=== PATIENT | female | born 1940 ===

== ENCOUNTER 2017-07-24 12:39 | Observation (INO) | payer MEDICARE ==
[2017-07-24] MEDS ORDERED: Sodium Chloride 0.9% 1,000 ML IV SCH (12:45)
[2017-07-24 13:06] LABS: BASO % 0.6 % (0.0-2.0); EOS # 0.2 K/uL (0.0-0.7); EOS % 3.2 % (0.0-4.0); HEMOGLOBIN 14.8 g/dL (12.0-16.0); LYMPH # 1.9 K/uL (1.0-4.3); LYMPH % 25.2 % (20.0-40.0); MEAN CELL VOLUME 89.4 fl (81.0-99.0); MEAN CORPUSCULAR HGB CONC 33.5 g/dL (33.0-37.0); MEAN PLATELET VOLUME 8.6 fl (7.2-11.7); MONO # 0.6 K/uL (0.0-0.8); MONO % 7.6 % (0.0-10.0); NEUT # 4.8 K/uL (1.8-7.0); NEUT % 63.4 % (50.0-75.0); RBC 4.92 Mil/uL (3.80-5.20); RED CELL DISTRIBUTION WIDTH 13.4 % (11.5-14.5); WHITE BLOOD COUNT 7.5 K/uL (4.8-10.8)
[2017-07-24 13:10] LABS: INR 1.1 (0.9-1.2); PARTIAL THROMBOPLASTIN TIME 31.7 Seconds (25.6-37.1); PROTHROMBIN TIME 11.7 Seconds (9.8-13.1)
[2017-07-24 13:12] LABS: ALB/GLOB RATIO 1.3 (1.0-2.1); ALBUMIN 4.5 g/dL (3.5-5.0); ALT/SGPT 32 U/L (9-52); AST/SGOT 28 U/L (14-36); BLOOD UREA NITROGEN 19 mg/dl (7-17); CALCIUM 9.5 mg/dL (8.4-10.2); GFR AFRICAN-AMERICAN > 60; GFR NON-AFRICAN AMERICAN > 60; HDL CHOLESTEROL 35 MG/DL (30-70)
--- NOTE | 2017-07-24 13:21 | CT ---
PROCEDURE: CT HEAD WITHOUT CONTRAST. HISTORY: code stroke COMPARISON: None available. TECHNIQUE: Axial computed tomography images were obtained through the head/brain without intravenous contrast. Radiation dose: Total exam DLP = 697.16 mGy-cm. This CT exam was performed using one or more of the following dose reduction techniques: Automated exposure control, adjustment of the mA and/or kV according to patient size, and/or use of iterative reconstruction technique. FINDINGS: HEMORRHAGE: No intracranial hemorrhage. BRAIN: Normal post-white matter differentiation and density are appreciated throughout the cerebrum and cerebellum with the brainstem appearing unremarkable as well. There is no mass effect. There is no suspicious extra-axial fluid collection and the midline brain anatomy appears diffusely unremarkable. VENTRICLES: Unremarkable. No hydrocephalus. CALVARIUM: Unremarkable. PARANASAL SINUSES: Unremarkable as visualized. No significant inflammatory changes. MASTOID AIR CELLS: Unremarkable as visualized. No inflammatory changes. OTHER FINDINGS: None. IMPRESSION: Unremarkable noncontrast Head CT. Follow-up CT or MRI are available if indicated. Discussed with Dr. Jackman with written entering via verification 07/24/2017 1:16 p.m..
[2017-07-24 13:22] LABS: LDL CHOLESTEROL 81 mg/dL (0-129)
[2017-07-24] MEDS ORDERED: Labetalol 5 mg/ml Inj 20ML IVP STA ×2 (13:27→14:13)
--- NOTE | 2017-07-24 14:13 | ED PDOC ---
NIHSS Stroke Scale - Date/Time Evaluation Performed When Was NIHSS Performed: Baseline - How Severe is the Stroke Level of Consciousness: 0=Alert LOC to Questions: 1=One correct LOC to commands: 0=Obeys both correctly Best Gaze: 0=Normal Visual: 0=No visual loss Facial: 0=Normal Motor Arm - Left: 0=No drift Motor Arm - Right: 0=No drift Motor Leg - Left: 0=No drift Motor Leg - Right: 0=No drift Limb Ataxia: 0=Absent Sensory: 0=Normal Best Language: 1=Mild to moderate aphasia Dysarthia: 0=Normal articulation Extinction & Inattention (Neglect): 0=Normal, no object Score: 2 Past Medical History Vital Signs: Last Vital Signs Temp 97 F L 07/24/17 13:03 Pulse 69 07/24/17 14:08 Resp 19 07/24/17 14:08 BP 153/73 H 07/24/17 14:08 Pulse Ox 98 07/24/17 14:08 - Home Medications Home Medications: Ambulatory Orders Medication Instructions Recorded Atorvastatin [Lipitor] 10 mg PO HS 07/24/17 Levothyroxine [Synthroid] 75 mcg PO DAILY 07/24/17 Lisinopril [Zestril] 5 mg PO DAILY 07/24/17 amLODIPine [Norvasc] 2.5 mg PO DAILY 07/24/17 - Allergies Allergies/Adverse Reactions: Allergies Allergy/AdvReac Type Severity Reaction Status Date / Time No Known Allergies Allergy Verified 07/24/17 12:43 - Laboratory Results Result Diagrams: 07/24/17 12:55 07/24/17 12:55 - ECG O2 Sat by Pulse Oximetry: 98 Disposition - Disposition
--- NOTE | 2017-07-24 15:12 | RAD ---
HISTORY: Code Stroke COMPARISON: No prior. FINDINGS: LUNGS: No active pulmonary disease. PLEURA: No significant pleural effusion identified, no pneumothorax apparent. CARDIOVASCULAR: Normal. OSSEOUS STRUCTURES: No significant abnormalities. VISUALIZED UPPER ABDOMEN: Normal. OTHER FINDINGS: None. IMPRESSION: No acute cardiopulmonary disease appreciated.
--- NOTE | 2017-07-24 15:46 | MRI ---
PROCEDURE: MRI BRAIN WITHOUT CONTRAST HISTORY: acute confusion COMPARISON: Noncontrast head CT 07/24/2017. TECHNIQUE: Multiplanar, multisequence MR images of the brain were obtained without intravenous contrast enhancement. FINDINGS: HEMORRHAGE: None DWI: No evidence of an acute or early subacute infarction. BRAIN PARENCHYMA: Trace periventricular chronic microangiopathy white-matter changes are identified and there is limited diffuse cerebral atrophy. No cortical edema is appreciated. There is no mass effect. There is no suspicious extra-axial fluid collection appreciated there is a near empty sella. Midline brain anatomy is otherwise unremarkable. Posterior fossa contents are unremarkable. Two tiny nearly punctate cystic areas at the upper left ramakrishna approaching the left cerebral peduncle appear to represent dilated perivascular spaces rather than chronic lacunes. VENTRICLES: Unremarkable. No hydrocephalus. CRANIUM: Unremarkable. ORBITS: Grossly unremarkable. PARANASAL SINUSES/MASTOIDS: Clear VASCULAR SYSTEM: Skull base flow voids intact. OTHER FINDINGS: None. IMPRESSION: Stable nonacute brain MRI with no significant interval change as compared prior head CT also performed 07/24/2017 earlier in the day. Limited age-related neuro degenerative changes are encountered.
--- NOTE | 2017-07-24 15:48 | MRI ---
PROCEDURE: Magnetic Resonance Angiography Brain HISTORY: acute onset confusion COMPARISON: None available. TECHNIQUE: 3D time of flight MR angiography of the intracranial arteries was performed. Rotating maximum intensity projection images were generated. FINDINGS: INTERNAL CAROTID ARTERIES: Unremarkable. The skull base, petrous, cavernous and supraclinoid segments are bilaterally widely patient. ANTERIOR CEREBRAL ARTERIES: Unremarkable. A1 and A2 segments are widely patent. Smaller distal branches unremarkable, as visualized. MIDDLE CEREBRAL ARTERIES: Unremarkable. M1 and M2 segments are widely patent. Perisylvian branches grossly symmetric. POSTERIOR CIRCULATION: Basilar Artery: Unremarkable. Distal Vertebral Arteries: Unremarkable. Posterior Cerebral Arteries: Unremarkable. Posterior Inferior Cerebellar Arteries: Unremarkable. ANEURYSM/ VASCULAR MALFORMATIONS: None. OTHER FINDINGS: None. IMPRESSION: Unremarkable MR angiography of the brain.
--- NOTE | 2017-07-24 17:56 | US ---
PROCEDURE: Duplex ultrasound of the carotid and vertebral arteries. HISTORY: stroke COMPARISON: None available. TECHNIQUE: Grayscale and duplex Doppler evaluation of the cervical carotid and vertebral arteries were performed. The common carotid, carotid bifurcations and cervical ICA and proximal ECA were evaluated. The vertebral arteries were evaluated for gross patency and direction. FINDINGS: RIGHT CAROTID ARTERIES: Common Carotid Artery: Normal. Maximal flow velocity of 73.5 cm/s. Carotid Bifurcation: Trace plaque identified at the carotid bulb. Internal Carotid Artery:Normal. Maximal flow velocity of 54.1 cm/s. External Carotid Artery (proximal branches): Widely patent Maximal flow velocity of 59.3 cm/s. ICA/CCA Ratio: 0.7 LEFT CAROTID ARTERIES: Common Carotid Artery: Normal. Maximal flow velocity of 53.4 cm/s. Carotid Bifurcation: Normal. Internal Carotid Artery:Normal. Maximal flow velocity of 55.6 cm/s. External Carotid Artery (proximal branches): Normal. Maximal flow velocity of 51.2 cm/s. ICA/CCA Ratio: 1.0 VERTEBRAL ARTERIES: Right Vertebral Artery: Patent. Antegrade flow. Left Vertebral Artery: Patent. Antegrade flow. OTHER FINDINGS: None. IMPRESSION: Trace plaque right carotid bulb with none identified at the left. No significant stenosis bilateral common or internal carotid arteries based on morphology and spectral analysis.
--- NOTE | 2017-07-24 23:24 | CP.PCM.HP ---
History of Present Illness - History of Present Illness History of Present Illness: This is a 77 y/o female admitted for Past Patient History - Past Medical History & Family History Past Medical History?: Yes - Past Social History Smoking Status: Former Smoker - CARDIAC Hx Cardiac Disorders: Yes Hx Hypercholesterolemia: Yes Hx Hypertension: Yes - PULMONARY Hx Respiratory Disorders: No - NEUROLOGICAL Hx Neurological Disorder: No - HEENT Hx HEENT Problems: Yes Hx Glaucoma: Yes - RENAL Hx Chronic Kidney Disease: No - ENDOCRINE/METABOLIC Hx Endocrine Disorders: Yes Hx Hypothyroidism: Yes - HEMATOLOGICAL/ONCOLOGICAL Hx Blood Disorders: No Hx AIDS: No Hx Human Immunodeficiency Virus (HIV): No - INTEGUMENTARY Hx Dermatological Problems: No - MUSCULOSKELETAL/RHEUMATOLOGICAL Hx Musculoskeletal Disorders: No Hx Falls: No - GASTROINTESTINAL Hx Gastrointestinal Disorders: No - GENITOURINARY/GYNECOLOGICAL Hx Genitourinary Disorders: No - PSYCHIATRIC Hx Psychophysiologic Disorder: No Hx Substance Use: No - SURGICAL HISTORY Hx Surgeries: Yes Hx Appendectomy: Yes Hx Section: Yes Hx Tonsillectomy: Yes - ANESTHESIA Hx Anesthesia: Yes Hx Anesthesia Reactions: No Hx Malignant Hyperthermia: No Has any member of the family had a problem w/ anesthesia?: No Meds Allergies/Adverse Reactions: Allergies Allergy/AdvReac Type Severity Reaction Status Date / Time No Known Allergies Allergy Verified 07/24/17 12:43 Results - Vital Signs Recent Vital Signs: Last Vital Signs Temp 98.1 F 07/24/17 20:01 Pulse 66 07/24/17 20:01 Resp 17 07/24/17 20:01 BP 142/75 07/24/17 20:01 Pulse Ox 97 07/24/17 20:01 - Labs Result Diagrams: 07/24/17 12:55 07/24/17 12:55 Labs: Laboratory Results - last 24 hr 07/24/17 07/24/17 07/24/17 12:45 12:55 12:55 WBC 7.5 RBC 4.92 Hgb 14.8 Hct 44.0 MCV 89.4 MCH 30.0 MCHC 33.5 RDW 13.4 Plt Count 216 MPV 8.6 Neut % (Auto) 63.4 Lymph % (Auto) 25.2 [place] % (Auto) 7.6 Eos % (Auto) 3.2 Baso % (Auto) 0.6 Neut # (Auto) 4.8 Lymph # (Auto) 1.9 [place] # (Auto) 0.6 Eos # (Auto) 0.2 Baso # (Auto) 0.0 PT INR APTT Sodium 138 Potassium 4.1 Chloride 102 Carbon Dioxide 23 Anion Gap 17 BUN 19 H Creatinine 0.6 L Est GFR ( Amer) > 60 Est GFR (Non-Af Amer) > 60 POC Glucose (mg/dL) 91 Random Glucose 106 H Hemoglobin A1c Calcium 9.5 Total Bilirubin 0.7 AST 28 ALT 32 Alkaline Phosphatase 109 Troponin I < 0.0120 Total Protein 8.0 Albumin 4.5 Globulin 3.5 Albumin/Globulin Ratio 1.3 Triglycerides 185 H Cholesterol 152 LDL Cholesterol Direct 81 HDL Cholesterol 35 07/24/17 07/24/17 12:55 12:55 WBC RBC Hgb Hct MCV MCH MCHC RDW Plt Count MPV Neut % (Auto) Lymph % (Auto) [place] % (Auto) Eos % (Auto) Baso % (Auto) Neut # (Auto) Lymph # (Auto) [place] # (Auto) Eos # (Auto) Baso # (Auto) PT 11.7 INR 1.1 APTT 31.7 Sodium Potassium Chloride Carbon Dioxide Anion Gap BUN Creatinine Est GFR ( Amer) Est GFR (Non-Af Amer) POC Glucose (mg/dL) Random Glucose Hemoglobin A1c 5.7 Calcium Total Bilirubin AST ALT Alkaline Phosphatase Troponin I Total Protein Albumin Globulin Albumin/Globulin Ratio Triglycerides Cholesterol LDL Cholesterol Direct HDL Cholesterol
[2017-07-25] MEDS: Levothyroxine 75 MCG TAB PO SCH (08:27)
--- NOTE | 2017-07-25 10:19 | CP.PCM.CON ---
History of Present Illness - History of Present Illness History of Present Illness: 77 yr old woman from [facility], who is here for confusion and a feeling of depersonalization that she normally feels when her blood pressure rises. In the er, her blood pressure was 200 systolic and she was given more labetalol in the er. she was not a tpa candidate as her symptoms resolved and i felt that she was having hypertensive urgency. today, she participates in the physical exam and is normal neurologically. She says that the last time she had a tia she had similar feelings of confusion and it passed when she took her bp meds. roS: as above . no weakness, no aphasia. pMH/PSH: Hypertension, hypothyroidism, glaucoma FH/SH: Has one son, no tobacco, no etoh. . All: nkda. on exam: normal neurological examination. no nystagmus, no dysmetria. no ataxia. Past Patient History - Past Medical History & Family History Past Medical History?: Yes - Past Social History Smoking Status: Former Smoker - CARDIAC Hx Cardiac Disorders: Yes Hx Hypercholesterolemia: Yes Hx Hypertension: Yes - PULMONARY Hx Respiratory Disorders: No - NEUROLOGICAL Hx Neurological Disorder: No - HEENT Hx HEENT Problems: Yes Hx Glaucoma: Yes - RENAL Hx Chronic Kidney Disease: No - ENDOCRINE/METABOLIC Hx Endocrine Disorders: Yes Hx Hypothyroidism: Yes - HEMATOLOGICAL/ONCOLOGICAL Hx Blood Disorders: No Hx AIDS: No Hx Human Immunodeficiency Virus (HIV): No - INTEGUMENTARY Hx Dermatological Problems: No - MUSCULOSKELETAL/RHEUMATOLOGICAL Hx Musculoskeletal Disorders: No Hx Falls: No - GASTROINTESTINAL Hx Gastrointestinal Disorders: No - GENITOURINARY/GYNECOLOGICAL Hx Genitourinary Disorders: No - PSYCHIATRIC Hx Psychophysiologic Disorder: No Hx Substance Use: No - SURGICAL HISTORY Hx Surgeries: Yes Hx Appendectomy: Yes Hx Section: Yes Hx Tonsillectomy: Yes - ANESTHESIA Hx Anesthesia: Yes Hx Anesthesia Reactions: No Hx Malignant Hyperthermia: No Has any member of the family had a problem w/ anesthesia?: No Meds Allergies/Adverse Reactions: Allergies Allergy/AdvReac Type Severity Reaction Status Date / Time No Known Allergies Allergy Verified 07/24/17 12:43 - Medications Medications: Current Medications Amlodipine Besylate (Norvasc) 5 mg PO DAILY [facility] Last Admin: 07/25/17 08:30 Dose: 5 mg Aspirin (Aspirin) 325 mg PO DAILY [facility] Last Admin: 07/25/17 08:26 Dose: 325 mg Atorvastatin Calcium (Lipitor) 10 mg PO HS [facility] Last Admin: 07/24/17 21:49 Dose: 10 mg Levothyroxine Sodium (Synthroid) 75 mcg PO DAILY [facility] Last Admin: 07/25/17 08:27 Dose: 75 mcg Lisinopril (Zestril) 5 mg PO DAILY [facility] Last Admin: 07/25/17 09:54 Dose: 5 mg Results - Vital Signs Recent Vital Signs: Last Vital Signs Temp 97.7 F 07/25/17 08:31 Pulse 85 07/25/17 09:54 Resp 20 07/25/17 08:31 BP 155/83 H 07/25/17 09:54 Pulse Ox 97 07/25/17 08:31 - Labs Result Diagrams: 07/24/17 12:55 07/24/17 12:55 Labs: Laboratory Results - last 24 hr 07/24/17 07/24/17 07/24/17 12:45 12:55 12:55 WBC 7.5 RBC 4.92 Hgb 14.8 Hct 44.0 MCV 89.4 MCH 30.0 MCHC 33.5 RDW 13.4 Plt Count 216 MPV 8.6 Neut % (Auto) 63.4 Lymph % (Auto) 25.2 [place] % (Auto) 7.6 Eos % (Auto) 3.2 Baso % (Auto) 0.6 Neut # (Auto) 4.8 Lymph # (Auto) 1.9 [place] # (Auto) 0.6 Eos # (Auto) 0.2 Baso # (Auto) 0.0 PT INR APTT Sodium 138 Potassium 4.1 Chloride 102 Carbon Dioxide 23 Anion Gap 17 BUN 19 H Creatinine 0.6 L Est GFR ( Amer) > 60 Est GFR (Non-Af Amer) > 60 POC Glucose (mg/dL) 91 Random Glucose 106 H Hemoglobin A1c Calcium 9.5 Total Bilirubin 0.7 AST 28 ALT 32 Alkaline Phosphatase 109 Troponin I < 0.0120 Total Protein 8.0 Albumin 4.5 Globulin 3.5 Albumin/Globulin Ratio 1.3 Triglycerides 185 H Cholesterol 152 LDL Cholesterol Direct 81 HDL Cholesterol 35 TSH 3rd Generation 07/24/17 07/24/17 07/25/17 12:55 12:55 06:30 WBC RBC Hgb Hct MCV MCH MCHC RDW Plt Count MPV Neut % (Auto) Lymph % (Auto) [place] % (Auto) Eos % (Auto) Baso % (Auto) Neut # (Auto) Lymph # (Auto) [place] # (Auto) Eos # (Auto) Baso # (Auto) PT 11.7 INR 1.1 APTT 31.7 Sodium Potassium Chloride Carbon Dioxide Anion Gap BUN Creatinine Est GFR ( Amer) Est GFR (Non-Af Amer) POC Glucose (mg/dL) Random Glucose Hemoglobin A1c 5.7 Calcium Total Bilirubin AST ALT Alkaline Phosphatase Troponin I Total Protein Albumin Globulin Albumin/Globulin Ratio Triglycerides Cholesterol LDL Cholesterol Direct HDL Cholesterol TSH 3rd Generation 1.33 - Imaging and Cardiology CT scan - head Status: Image reviewed by me, Report reviewed by me (MRi Brain, CTA and CT head normal with only microvascular ischemia, no stroke, no hemorrhage. ) Assessment & Plan - Assessment and Plan (Free Text) Assessment: 77 yr old woman with hypertensive urgency and resulting transient encephalopathy. She is not a candidate for stroke workkup. I will ask pmd for better cocktail for hypertension. plan: 1. Strict blood pressure control. 2. Discharge when stable. PLease reconsult prn. Thank you Dr. varela
[2017-07-26 00:20] VITALS: RESP 18
[2017-07-26 05:00] VITALS: O2SAT 98
[2017-07-26] MEDS: Levothyroxine 75 MCG TAB PO SCH (08:16)
--- NOTE | 2017-07-26 10:44 | CP.PCM.PN ---
Subjective - Date & Time of Evaluation Date of Evaluation: 07/25/17 Time of Evaluation: 11:20 - Subjective Subjective: patient still has problems with more recent memory Although she was able to relate some parts of the incident at home prior to having the acute memory loss and confusion. Objective - Vital Signs/Intake and Output Vital Signs (last 24 hours): Temp Pulse Resp BP Pulse Ox 97.7 F 62 18 104/65 98 07/26/17 08:05 07/26/17 09:30 07/26/17 08:05 07/26/17 09:30 07/26/17 08:05 - Medications Medications: Current Medications Amlodipine Besylate (Norvasc) 5 mg PO DAILY [facility] Last Admin: 07/26/17 09:29 Dose: 5 mg Aspirin (Aspirin) 325 mg PO DAILY [facility] Last Admin: 07/26/17 09:33 Dose: 325 mg Atorvastatin Calcium (Lipitor) 10 mg PO HS [facility] Last Admin: 07/25/17 22:14 Dose: 10 mg Levothyroxine Sodium (Synthroid) 75 mcg PO DAILY [facility] Last Admin: 07/26/17 08:16 Dose: 75 mcg Lisinopril (Zestril) 5 mg PO DAILY [facility] Last Admin: 07/26/17 09:30 Dose: 5 mg - Labs Labs: 07/24/17 12:55 07/24/17 12:55 PT 11.7 Seconds (9.8-13.1) 07/24/17 12:55 INR 1.1 (0.9-1.2) 07/24/17 12:55 APTT 31.7 Seconds (25.6-37.1) 07/24/17 12:55
[2017-07-26] MEDS ORDERED: Sodium Chloride 0.9% 500 ML IV SCH (11:15)
[2017-07-26 12:12] VITALS: BP 116/74; PULSE 59; TEMP 97.5
--- NOTE | 2017-07-26 12:19 | CARD ---
APPROVED REPORT EKG Measurement Heart [id number] <Conclusion> Normal sinus rhythm Possible Left atrial enlargement Borderline ECG
== END 2017-07-26 16:15 | disposition home or self-care (01) ==
LOC: H.ER 12:39 → H.ERHOLD 14:53 → H.TEL 17:13
PROVIDERS: ADMIT Family Medicine; ATTEND Family Medicine
DX: I16.0 Hypertensive urgency (principal); G93.40 Encephalopathy, unspecified; E03.9 Hypothyroidism, unspecified; E78.00 Pure hypercholesterolemia, unspecified; Z87.891 Personal history of nicotine dependence; Z90.49 Acquired absence of other specified parts of digestive tract
CPT/HCPCS: 36415; 70450; 70544; 70551; 71045; 80053; 80061; 82948; 83036; 84443; 84484; 85025; 85610; 85730; 93005; 93880; 96374; 97161; 97165; 99285; G0378; G8978; G8979; G8980; G8987; G8988; G8989